=== PATIENT | male | born 1940 | race Asian ===

== ENCOUNTER → 2019-10-17 10:53 | Outpatient (CLI) | payer MEDICARE, SELFPAY ==
--- NOTE | 2019-10-17 10:56 | CT_ITS ---
PROCEDURE: CT ABDOMEN PELVIS W CON CLINICAL INDICATION: Left lower quad pain COMPARISON: No exams were available for comparison TECHNIQUE: IV Contrast: 75ML OPTIRAY 350 Oral Contrast 450ml Redicat Axial images obtained with sagittal and coronal reformats. All CT scans at the facility use one or more dose reduction, viz: automated exposure control, ma/kV adjustment per patient size (including targeted exams where dose is matched to indication, i.e. head), or iterative reconstruction technique. FINDINGS: LOWER THORAX: There is severe three-vessel and left main coronary artery calcification. There is mild dilatation of the aortic root at 4 cm. There is mild cardiomegaly without failure. ABDOMEN & PELVIS: There is a 2.8 cm area peripheral heterogeneous contrast enhancement of the right lobe of the liver posteriorly with puddling appearance consistent with hemangioma. The spleen and adrenal glands have an unremarkable appearance. There is a small focus of calcification in the body of the pancreas nonspecific. No obvious pancreatic mass. Gallbladder has an unremarkable appearance. There are few small right renal calculi in the mid to lower pole measuring up to 3 mm. There are bilateral renal cyst as well as mild renal cortical scarring. Largest cyst on the right measures 1.9 cm. There is an infrarenal fusiform abdominal aortic aneurysm with moderate amount of your old thrombus. The aneurysm measures up to 5.2 cm in maximum transverse dimension and 4.6 cm in maximum AP dimension. The aneurysm begins just below the level of the renal arteries.. The aorta tapers distally measuring 1.8 cm and in the comes aneurysmal again at 2.8 cm just before the bifurcation with the aorta measuring 2 cm at the bifurcation. There is a fusiform aneurysm of the distal aspect of the right common iliac artery at 2.7 cm. Atherosclerotic calcification involves the iliac vessels. There is calcific plaque at the ostium of both the celiac and superior mesenteric artery with suspected moderate stenosis at both of these arteries. This could be better evaluated with CT angiography if clinically warranted. No intestinal obstruction or free air. There is a small left inguinal hernia which contains a knuckle of the sigmoid colon. The colon is thickened from the region of this hernia to the mid aspect of the sigmoid colon. There is some mild stranding of the pericolic fat in the left lower quadrant and at the region of the hernia. There is diverticulosis of the sigmoid colon. There is grade 1 spondylitic spondylolisthesis of L5 on S1. There is a small umbilical hernia which contains fat. IMPRESSION: 1. Severe three-vessel and left main coronary artery calcification with mild dilatation of the aortic root at 4 cm and mild cardiomegaly. 2. Probable hemangioma of the right lobe of the liver which may be confirmed with CT or MRI with hemangioma protocol 3. 5.2 cm infrarenal abdominal aortic aneurysm with moderate mural thrombus tapering distally with aneurysmal dilatation just proximal to the bifurcation at 2.8 cm 4. 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 Small left inguinal hernia containing a knuckle of sigmoid colon with mild thickening of the sigmoid colon and mild stranding of the pericolic fat which has more the appearance of a colitis of the sigmoid colon however mild diverticulitis is also a consideration. No abscess or perforation. 6. 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
[2019-10-17 11:14] LABS: Blood Urea Nitrogen 21 mg/dl (9-20); Estimated Glomerular Filt Rate 45 ml/min (>60); GFR (African American) 54 ML/MIN (>60)
== END ==
PROVIDERS: Visit Provider Surgery
DX: K46.9 Unspecified abdominal hernia without obstruction or gangrene (principal)
CPT/HCPCS: 36415; 74177; 82565; 84520; Q9967

== ENCOUNTER 2020-01-01 16:34 | Day surgery (SDC) | payer MEDICARE, SELFPAY ==
--- NOTE | 2020-01-01 | IR_ITS ---
APPROVED REPORT Patient Location: Emergent Camp Guard: JOCELYN Reyez RT (R) PROCEDURES Left femoral arterial access Angioplasty to the left main artery Thrombectomy to the circumflex artery Thrombectomy to the LAD Drug-eluting stent deployment to the mid LAD Left radial arterial access Selective coronary angiogram Placement of intra-aortic balloon pump Endotracheal intubation Intensive care treatment 90 minutes Greater than 30 minutes of chest compression INDICATION Acute anterior lateral myocardial infarction, Acute thrombosis of the distal left main artery, Coronary artery disease, Cardiogenic shock, Coronary artery disease, Acute respiratory failure, Acute circulatory collapse secondary to cardiogenic shock SCAI INDICATION Patient was admitted to [facility] yesterday for complex coronary procedure which apparently included Rotablator. Patient presented to our emergency department with acute onset of chest pain with EKG confirming acute ST elevation anterior myocardial infarction Informed consent was obtained prior to the procedure. COMPLICATIONS See below Estimated Blood Loss: LESS THAN 10 ML TECHNIQUE 1% lidocaine used anesthetize the left groin. The left femoral artery was accessed via the Salinger technique and a 6 Prydeinig sheath was placed in the left femoral artery. During attempt to perform diagnostic angiography patient developed acute cardiogenic shock requiring chest compressions. An EBU 4 guide catheter was used to intubate the left main artery and a Choice PT wire was placed initially down the circumflex artery. A penumbra catheter was advanced and a thrombus was retrieved. The wire was pulled back and placed into the LAD where the penumbra was also used to try to aspirate however there was difficulty getting the penumbra beyond the distal left main. A 3 mm x 12 mm noncompliant balloon was deployed at 20 dian up and down the LAD. Patient received chest compressions throughout the procedure as well as endotracheal intubation by the emergency room physician and code team. A 2.5 x 30 mm resolute medhat stent was deployed in the mid LAD at 20 dian. Patient was in cardiac standstill and despite chest compressions patient remained in pulseless electrical activity. Patient was given 5 mg of epinephrine into the coronary arteries and then developed hindu of blood pressure at approximately 70 mmHg systolic. At this point angiography demonstrated the LAD left main artery and circumflex arteries were both open therefore the apparatus was removed and a balloon pump was immediately placed into the descending aorta. The balloon pump was placed in a one-to-one mechanism and a blood pressure greater than 100 systolic was immediately restored. At this point the left radial artery was prepped and a 6 Prydeinig sheath was placed in the left radial artery. An ultra catheter was used to perform left coronary angiography which demonstrated NAYE-3 flow down the left main LAD and circumflex arteries. Blood gas was submitted as well as an ACT. Patient had artery received therapeutic heparin in the emergency department as well as the Bunch Maker Hand. Patient was started on an epinephrine drip. Patient also developed ventricular fibrillation and was shocked on several occasions with hindu to sinus rhythm. Blood gas was analyzed and bicarb was administered. Preparation was made to contact [facility] with plans to transfer patient back to his primary microsoft exchange administrator. Throughout the ordeal patient required additional boluses of epinephrine due to cardiogenic shock and hypotension. Patient's was notified of his grave condition and was brought in at bedside in order
[2020-01-01 16:37] VITALS: BP 137/89; PULSE 144; RESP 18; TEMP 36.8; O2SAT 99; BMI 22.6
--- NOTE | 2020-01-01 16:51 | ECG_ITS ---
APPROVED REPORT Exam: Resting ECG HR:147 bpm ECG Measurements Heart Rate 147 AXES QRSd 86 QRS -83 QT 338 T 49 QTc 528 <Conclusion> Undetermined rhythm Left axis deviation Low voltage QRS Inferior infarct, age undetermined Anteroseptal infarct, possibly acute Lateral injury pattern ACUTE NV Abnormal ECG Electronically signed by : Rodolfo Sanchez, 01/05/2020 12:04:38
--- NOTE | 2020-01-01 16:58 | HMH.EDGENADL ---
ED Disposition Clinical Impression: ST elevation TX (STEMI) Qualifiers: Involved coronary artery: unspecified coronary artery Qualified Code(s): I21.3 - ST elevation (STEMI) myocardial infarction of unspecified site Disposition: Admitted As Inpatient Condition on Discharge: Serious - Critical Care Critical Care Time: Yes Attestation: On 01/01/20, the high probability of a clinically significant, sudden or life threatening deterioration of the following system(s) required my full and direct attention, intervention and personal management. The time I documented below is in addition to time spent performing reported procedures but includes the following listed in this critical care notation. Total Critical Care Time: 15 Vital system(s) involved:: Circulatory Failure My critical care processes included: Assessment & monitoring of V/S, Initial and Re-exams, Data Review/Interpretation, Coordinating Care, Medication Orders and management, Documentation Medical Decision Making - Pepe Inquiry Pt receiving controlled substance: No Vital Signs: 01/01/20 16:37 01/01/20 17:20 Temperature 98.3 F 98.2 F Temperature Source Oral Pulse Rate 145 H Pulse Rate [Radial] 144 H Respiratory Rate 18 22 Blood Pressure 0/0 L Blood Pressure [Right Arm] 137/89 Blood Pressure Mean [Right Arm] 105 Blood Pressure Source [Right Arm] Automatic Cuff Blood Pressure Position [Right Arm] Sitting 02 Sat by Pulse Oximetry 99 Oxygen Delivery Method Room Air - Lab Data Lab Results 01/01/20 16:50: WBC 16.2 H, RBC 3.34 L, Hgb 10.1 L, Hct 31.7 L, MCV 94.9 H, MCH 30.3, MCHC 32.0, RDW 14.5, Plt Count 164, MPV 8.2, Neut % (Auto) 79.7, Lymph % (Auto) 12.4, [place] % (Auto) 6.6, Eos % (Auto) 0.8, Baso % (Auto) 0.5, Neut # (Auto) 12.9 H, Lymph # (Auto) 2.0, [place] # (Auto) 1.1 H, Eos # (Auto) 0.1, Baso # (Auto) 0.1, Total Counted 100, Neutrophils % (Manual) 83 H, Band Neutrophils % 4.0, Lymphocytes % (Manual) 9 L, Monocytes % (Manual) 3, Metamyelocytes % 1.0, Platelet Estimate Normal, RBC Morphology Normal 01/01/20 16:50: PT 10.6, INR 1.03, APTT 22.9 L 01/01/20 16:50: Sodium 139, Potassium 3.5, Chloride 111 H, Carbon Dioxide 22, Anion Gap 9.5, BUN 22 H, Creatinine 1.50 H, Estimated Creat Clear 34, Estimated GFR 45 L, Est GFR ( Amer) 54 L, Glucose 142 H, Calcium 8.2 L, Troponin I 43.90 H Result diagrams: 01/01/20 16:50 01/01/20 16:50 Orders (Tests/Meds): ED MEDICATIONS Generic Name Dose Route Start Last Admin Trade Name Freq PRN Reason Stop Dose Admin Sodium Chloride 1,000 mls @ 999 mls/hr 01/01/20 17:15 01/01/20 17:09 Sod Chlor 0.9% 1000ml Bag IV 01/01/20 18:15 999 mls/hr .Q1H1M MICHELLE Administration Discontinued Medications Generic Name Dose Route Start Last Admin Trade Name Freq PRN Reason Stop Dose Admin Aspirin 324 mg 01/01/20 17:06 01/01/20 17:09 Aspirin 81mg Chewable Tablet PO 01/01/20 17:07 324 mg ONCE ONE Administration Heparin Sodium (Porcine) 6,000 unit 01/01/20 16:58 01/01/20 17:05 Heparin 1,000 Units/Ml 10ml Vial (Corporate Affairs Manager) IV 01/01/20 16:59 6,000 unit ONCE ONE Administration Ticagrelor 180 mg 01/01/20 16:58 01/01/20 17:06 Brilinta 90mg Tablet PO 01/01/20 16:59 180 mg ONCE ONE Administration ORDERS Category Date Time Status Troponin I Q3H Lab 01/01/20 20:15 Ordered Troponin I Q3H Lab 01/01/20 23:15 Ordered ECG Request by /Nse Stat Y 01/01/20 17:15 Ordered - ECG Data Tracing #1 EKG interpreted by Henry Ibarra MD: Rhythm: Irregular tachycardic rhythm, most likely atrial fibrillation. Rate: 147 [place]: normal Ectopy: Premature ventricular contractions versus aberrant conduction Conduction: normal ST Segment Changes: ST elevation in the anterior leads consistent with acute anterior ST elevation TX Q Waves: Anterior No evidence of acute ischemia or injury - Physician Consults Physician Consulted: Saran Time: 16:58 Reason -: Cardiology Hannah
--- NOTE | 2020-01-01 17:02 | PC.NURSE ---
STEMI called at 1650. 2- 18 gauge IV's obtained, 6,000 units of heparin given per Dr. Noonan and 180mg of Brillinta given. Patient placed on color television console monitor. Dr. paul spoke with Dr. Noonan and then patient was transferred to ammunition assembly ii laborer. at bedside.
--- NOTE | 2020-01-01 17:03 | PC.NURSE ---
Pt to lab animal technologist at this time supervisor melt house accompanying
--- NOTE | 2020-01-01 17:14 | PC.NURSE ---
operations processor for service paged at this time
[2020-01-01 17:20] VITALS: BP 0/0; PULSE 145; RESP 22; TEMP 36.8; O2SAT 97
[2020-01-01 17:21] LABS: Basophils # 0.1 K/mm3 (0-0.2); Basophils % 0.5 % (0.1-2.0); Eosinophils # 0.1 K/mm3 (0.0-0.4); Eosinophils % 0.8 % (0.1-12.0); Hematocrit 31.7 % (42.0-52.0); Hemoglobin 10.1 g/dL (14.1-18.0); Lymphocytes % 12.4 % (10-50); Mean Corpuscular Hemoglobin 30.3 pg (27.0-31.2); Mean Corpuscular Volume 94.9 fl (80-94); Mean Platelet Volume 8.2 fl (7.4-10.4); Monocytes # 1.1 K/mm3 (0.1-1.0); Monocytes % 6.6 % (1.7-9.3); Neutrophils # 12.9 K/mm3 (1.8-7.8); Neutrophils % 79.7 % (37.0-80.0); Platelet Count 164 K/mm3 (142-424); Red Blood Count 3.34 M/mm3 (4.60-6.20); Red Cell Distribution Width 14.5 % (11.5-17.5); White Blood Count 16.2 K/mm3 (4.8-10.8)
[2020-01-01 17:22] LABS: Chloride 111 mmol/L (98-107)
[2020-01-01 17:23] LABS: Potassium 3.5 mmoL/L (3.5-5.1); Sodium 139 mmol/L (136-145)
[2020-01-01 17:26] LABS: Anion Gap 9.5 mEq/L (5-15); Blood Urea Nitrogen 22 mg/dl (9-20); Calcium 8.2 mg/dl (8.4-10.2); Carbon Dioxide 22 mmol/L (22.0-30.0); Creatinine Clearance Estimated 34 mL/min (50-200); Estimated Glomerular Filt Rate 45 ml/min (>60); GFR (African American) 54 ML/MIN (>60); Glucose 142 mg/dl (74-100); MANUAL DIFFERENTIAL MANUAL DIFFERENTIAL (MANUAL DIFF)
[2020-01-01 17:33] LABS: Activated Partial Thrombo Time 22.9 seconds (23.6-34.0); INR 1.03 (0.9-1.1); Prothrombin Time 10.6 seconds (9.4-11.8)
[2020-01-01 17:35] LABS: Lymphocytes % 9 % (10-50); Monocytes % 3 % (2-9); Neutrophils % 83 % (42-76); Platelet Estimate Normal; RBC Morphology Normal; Total Cells Counted 100
--- NOTE | 2020-01-01 17:41 | PC.NURSE ---
Dr Mera called back to speak to Dr humberto MD is in cathlab at this time attending to pt, gave Dr Mera update on pt
--- NOTE | 2020-01-01 17:57 | PC.NURSE ---
DR JOHN PAGED AGAIN
--- NOTE | 2020-01-01 18:08 | PC.NURSE ---
SPEAKING WITH DR. JOHN
[2020-01-01 18:10] VITALS: O2SAT 87
--- NOTE | 2020-01-01 19:03 | PC.NURSE ---
Rt suctioned Pt via ET tube and sent SPT to lab at 1845
--- NOTE | 2020-01-01 19:30 | SUR.PHASEII ---
spoke with Getter Operator Anderson Montanez. pt is a coroners case. project management intern states that he will contact [facility]. Staff does not need to. Nahmoy Bella in laborer aquatic life informed of this.
--- NOTE | 2020-01-01 19:33 | SUR.OPER ---
1730 patient bradycardic, to asytole, cpr started, epi given, attempts made to open lad, stent placed, continued cpr, 1 shock delivered due to v fib on monitor, continued cpr, balloon pump placed, multiple doses of epinephrine given ivp per md orders, levophed drip started,amiodorone gtt started, heparin gtt started, epinephrine gtt started all per md orders- see
--- NOTE | 2020-01-01 19:54 | SUR.OPER ---
1730-ASYSTOLE, CPR STARTED, 1 AMP EPI, O2 DELIVERED VIA AMBU 1737-1 AMP BICARD, 2 AMP EPI, CONTINUED CPR 1739-1 AMP EPI, CPR CONTINUED, CONTINUED VENTILATION VIA AMBU 1741-1 AMP BICARB 1742-1 AMP BICARB, CONTINUE CPR 1745-5MG EPI GIVEN INTRA CORONARY PER MD, CONTINUE CPR, O2 DELIVERED VIA AMBU 1749-BALLOON PUMP INITIATED 1750-V FIB, 200J SHOCK DELIVERED 1754-300MG AMIODORONE GIVEN 1758-AMIO GTT STARTED AT 33ML 1804-INTUBATED 7.5 ET TUBE, PUT ON VENTILATOR 1805-10MG EPI GIVEN 1806-EPI GTT STARTED 4MCG/MIN 1810-1 AMP BICARB 1815-EPI UP TO 12ML/HR 1817-2MG VERSED, 25MCG FENTANYL 1821-2MG EPI GIVEN 1822-1MG EPI 1824-5MG OF EPI 1828-LEVOPHED GTT [id number] 1844-2MG EPI 1845-2 MG EPI GIVEN 1853 CODE CALLED
[2020-01-02 06:17] LABS: ABG PCO2 35.9 mmhg (35.0-45.0); ABG PH 7.26 mmol/L (7.35-7.45)
[2020-01-02 06:18] LABS: ABG Base Excess -11.3 mmol/L (-2.4-2.3); ABG HCO3 15.8 mmhg (22.0-26.0); ABG Oxygen Saturation 95 % (90-100); ABG PO2 101.5 mmhg (80-100); ABG TCO2 16.9 mmhg (23-27)
[2020-01-02 06:19] LABS: Oxygen 100% AMBU %; Source FEMORAL
--- NOTE | 2020-01-29 11:54 | HMH.DCSUM ---
General - General Admission date:: 01/01/2020 Discharge date: 01/01/20 HPI HPI: 79-year-old gentleman discharged from [facility] in [place] a few hours prior to his presentation to our emergency department with sudden onset chest pain.EKG demonstrated an anterior myocardial infarction. Patient was emergently brought to the cardiac [employer] where he developed cardiogenic shock prior to being able to perform PCI. Chest compressions were applied during the diagnostic and interventional heart cath. Using thrombectomy and drug-eluting stents the LAD was able to be openedAnd NAYE-3 flow was achieved. Patient continued to Experience cardiogenic shock which was recalcitrant to placement of intra-aortic balloon pump. Despite all efforts including endotracheal intubation balloon pump CPR and ACLS patient eventually succumbed to cardiogenic shock from the anterior myocardial infarction he suffered.The patient's was brought into the [employer] [facility] for bedside vigilanceAnticipate her last respects. Presumed cause of was cardiogenic shock manifested as an acute ST elevation anterior myocardial infarction stemming from coronary artery disease and recent stent placement at [facility] in [place]. The cnc applications engineer was notified. Objective Vital signs: Temp Pulse Resp BP Pulse Ox 98.2 F 145 H 22 0/0 L 87 L 01/01/20 17:20 01/01/20 17:20 01/01/20 17:20 01/01/20 17:20 01/01/20 18:10 Discharge Plan - Patient Discharge Instructions - Follow up Plan Follow up with: Jesus Devries MD [Primary Care Provider] - Disposition: Home Medications: Home Medications Medication Instructions Recorded Confirmed Type aspirin 81 mg tablet,delayed 81 mg PO DAILY 10/17/19 10/17/19 History release Clopidogrel Bisulfate [Plavix 75mg 75 mg PO DAILY 01/01/20 01/01/20 History Tab] atenoloL [Atenolol 25mg Tab] 12.5 mg PO DAILY 01/01/20 01/01/20 History Prescriptions/Medication Reconciliation: No Action aspirin 81 mg tablet,delayed release 81 mg PO DAILY Clopidogrel Bisulfate [Plavix 75mg Tab] 75 mg PO DAILY atenoloL [Atenolol 25mg Tab] 12.5 mg PO DAILY - Problem Reconciliation Problems Reviewed?: Yes
[2020-04-20 09:34] LABS: CATHL Activated Clotting Time 268 SEC (74-125)
== END 2020-01-01 18:53 | disposition expired ==
LOC: ER 17:20 → CATHLAB 17:21
PROVIDERS: Emergency Provider Emergency Medicine; PCP Internal Medicine; Visit Provider Internal Medicine
DX: I97.190 Other postprocedural cardiac functional disturbances following cardiac surgery (principal); T82.867A Thrombosis due to cardiac prosthetic devices, implants and grafts, initial encounter; I21.A9 Other myocardial infarction type; I21.02 ST elevation (STEMI) myocardial infarction involving left anterior descending coronary artery; J96.00 Acute respiratory failure, unspecified whether with hypoxia or hypercapnia; R57.0 Cardiogenic shock; I25.10 Atherosclerotic heart disease of native coronary artery without angina pectoris
CPT/HCPCS: 33970; 80048; 82803; 84484; 85007; 85025; 85347; 85610; 85730; 92941; 92943; 93005; 94002; 96365; 96375; 99152; 99153; 99283; 99284; C1725; C1769; C1876; C9606; C9607; J1644; Q9967